=== PATIENT | female | born 1935 | race Caucasian/White ===

== ENCOUNTER 2018-04-01 13:30 | Emergency (ER) | payer OTHER | END 2018-04-01 14:15 | disposition home or self-care (01) | LOC: FTE 13:30 | DX: H60.91 Unspecified otitis externa, right ear (principal); E11.9 Type 2 diabetes mellitus without complications; I10 Essential (primary) hypertension | CPT/HCPCS: 99283 ==

== ENCOUNTER 2019-03-28 14:15 | Observation (INO) | payer OTHER ==
[2019-03-28 15:06] LABS: ADD MAN DIFF? NO
[2019-03-28 15:10] LABS: BASOPHILS % 0.1 % (0.0-2.0); EOSINOPHILS # 0.1 10^3/ul (0.0-0.5); EOSINOPHILS % 0.8 % (0.0-7.0); HEMATOCRIT 43.8 % (37.0-47.0); HEMOGLOBIN 14.1 g/dl (12.0-16.0); LYMPHOCYTES # 1.6 10^3/ul (0.8-2.9); MEAN CORPUSCULAR HGB CONC 32.2 g/dl (32.0-37.0); MEAN CORPUSCULAR VOLUME 86.9 fl (82.0-101.0); MEAN PLATELET VOLUME 10.2 fl (7.4-10.4); MONOCYTE # 0.4 10^3/ul (0.3-0.9); NEUTROPHIL # 5.3 10^3/ul (1.6-7.5); NEUTROPHILS % 71.8 % (39.0-77.0); PLATELET COUNT 175 10^3/UL (140-415); RED BLOOD COUNT 5.04 10^6/ul (4.20-5.40); RED CELL DISTRIBUTION WIDTH 12.6 % (11.5-14.5)
[2019-03-28 15:10] LABS: WHITE BLOOD COUNT 7.4 10^3/ul (4.8-10.8)
[2019-03-28 15:22] LABS: ADD UMIC YES; UR ASCORBIC ACID NEGATIVE (NEGATIVE); UR BILIRUBIN (Dip) NEGATIVE (NEGATIVE); UR BLOOD (Dip) NEGATIVE (NEGATIVE); UR CLARITY SLIGHTLY CLOUDY (CLEAR); UR COLOR YELLOW (YELLOW); UR GLUCOSE (Dip) NEGATIVE (NEGATIVE); UR KETONES (Dip) NEGATIVE (NEGATIVE); UR LEUKOCYTE ESTERASE (Dip) 2+ Leu/ul (NEGATIVE); UR MUCUS FEW /HPF (NONE SEEN); UR NITRITE (Dip) NEGATIVE (NEGATIVE); UR RBC 2 /HPF (0-5); UR SPECIFIC GRAVITY (Dip) 1.012 (1.003-1.030); UR SQUAMOUS EPITHELIAL CELL FEW /HPF (FEW); UR TOTAL PROTEIN (Dip) NEGATIVE (NEGATIVE); UR UROBILINOGEN (Dip) 1+ mg/dL (NEGATIVE); UR WBC 4 /HPF (0-5)
[2019-03-28 15:30] LABS: ALANINE AMINOTRANSFERASE 26 IU/L (13-69); ALBUMIN 4.8 g/dl (3.3-4.9); ALKALINE PHOSPHATASE 70 IU/L (42-121); ANION GAP 11 (5-13); ASPARTATE AMINO TRANSFERASE 21 IU/L (15-46); BILIRUBIN,INDIRECT 0.6 mg/dl (0-1.1); BILIRUBIN,TOTAL 0.6 mg/dl (0.2-1.3); BLOOD UREA NITROGEN 12 mg/dl (7-20); CALCIUM 10.1 mg/dl (8.4-10.2); CARBON DIOXIDE 31 mmol/L (21-31); CHLORIDE 94 mmol/L (97-110); CREATININE 0.56 mg/dl (0.44-1.00); GLUCOSE 162 mg/dl (70-220); LIPASE 128 U/L (23-300); POTASSIUM 4.2 mmol/L (3.5-5.1); SODIUM 136 mmol/L (135-144); TOTAL PROTEIN 8.8 g/dl (6.1-8.1)
[2019-03-28 15:42] LABS: TROPONIN-I < 0.012 ng/ml (0.000-0.120)
[2019-03-28] MEDS ORDERED: ONDANSETRON 4 MG INJ IV ×2 (17:00→17:30)
[2019-03-28] MEDS ORDERED: ACETAMINOPHEN 325 MG TAB PO ×2 (17:00→17:30)
[2019-03-28] MEDS: CEFTRIAXONE 1 GM/50 ML (PMX) 50 ML IVPB (17:13)
[2019-03-28] MEDS ORDERED: AL HYDROX/MG HYDROX/SIMETH 30 ML CUP PO (17:30)
[2019-03-28] MEDS ORDERED: DOCUSATE SODIUM 100 MG CAP PO (17:30)
[2019-03-28] MEDS ORDERED: morphine 2 MG INJ IV (17:30)
[2019-03-28] MEDS ORDERED: HYDROCODONE/APAP (5/325) TAB PO (17:30)
[2019-03-28] MEDS ORDERED: NACL 0.9% 3 ML SYG IV (17:30)
[2019-03-28] MEDS ORDERED: BISACODYL (EC) 5 MG TAB PO (17:30)
[2019-03-28] MEDS ORDERED: GLIMEPIRIDE 2 MG TAB PO (18:00)
[2019-03-28 18:11] LABS: CREATINE KINASE 50 IU/L (23-200)
[2019-03-28 18:11] LABS: LACTIC ACID 1.3 mmol/L (0.5-2.0)
[2019-03-28] MEDS: INSULIN ASPART [NOVOLOG] 3 ML PEN SC ×3 (18:51→21:00)
[2019-03-28] MEDS ORDERED: GLUCAGON 1 MG INJ IM (19:00)
[2019-03-28] MEDS ORDERED: GLUCOSE GEL 15 GRAM TUBE BUCCAL (19:00)
[2019-03-28] MEDS ORDERED: GLUCOSE GEL 15 GRAM TUBE PO ×2 (19:00)
[2019-03-28] MEDS ORDERED: DEXTROSE 50% 50 ML SYRINGE IV ×2 (19:00)
[2019-03-28] MEDS: ACCU-CHEK XX ×2 (21:00)
[2019-03-28] MEDS: FAMOTIDINE 20 MG TAB PO (21:34)
[2019-03-28] MEDS: SOD CHLORIDE 0.9% 1,000 ML IV (21:50)
[2019-03-29] MEDS: BARIUM SULF 2% 450 ML BTL (BERRY SMOOTHIE) PO (01:10)
[2019-03-29] MEDS: ACCU-CHEK XX ×4 (01:11→17:26)
[2019-03-29] MEDS: SOD CHLORIDE 0.9% 1,000 ML IV ×2 (03:46→11:39)
[2019-03-29] MEDS: IOHEXOL 300MG/ML 150 ML BTL (04:05)
[2019-03-29] MEDS: SOD CHLORIDE 0.9% 100 ML (04:05)
[2019-03-29 07:10] LABS: ADD MAN DIFF? NO
[2019-03-29 07:23] LABS: WHITE BLOOD COUNT 7.6 10^3/ul (4.8-10.8)
[2019-03-29 07:23] LABS: BASOPHILS % 0.1 % (0.0-2.0); EOSINOPHILS # 0.1 10^3/ul (0.0-0.5); EOSINOPHILS % 1.4 % (0.0-7.0); HEMATOCRIT 40.4 % (37.0-47.0); HEMOGLOBIN 12.9 g/dl (12.0-16.0); LYMPHOCYTES # 2.1 10^3/ul (0.8-2.9); MEAN CORPUSCULAR HEMOGLOBIN 28.2 pg (29.0-33.0); MEAN CORPUSCULAR HGB CONC 31.9 g/dl (32.0-37.0); MEAN CORPUSCULAR VOLUME 88.2 fl (82.0-101.0); MEAN PLATELET VOLUME 10.7 fl (7.4-10.4); MONOCYTE # 0.6 10^3/ul (0.3-0.9); MONOCYTES % 7.8 % (0.0-11.0); NEUTROPHIL # 4.7 10^3/ul (1.6-7.5); NEUTROPHILS % 62.4 % (39.0-77.0); PLATELET COUNT 224 10^3/UL (140-415); RED BLOOD COUNT 4.58 10^6/ul (4.20-5.40); RED CELL DISTRIBUTION WIDTH 12.7 % (11.5-14.5)
[2019-03-29 07:33] LABS: HEMOGLOBIN A1C 7.5 % (0-5.9)
[2019-03-29 07:43] LABS: INR 1.05; PROTIME 13.8 Sec (11.9-14.9); PT RATIO 1.1
[2019-03-29 07:53] LABS: ALANINE AMINOTRANSFERASE 21 IU/L (13-69); ALBUMIN/GLOBULIN RATIO 1.14; ALKALINE PHOSPHATASE 58 IU/L (42-121); ANION GAP 6 (5-13); ASPARTATE AMINO TRANSFERASE 24 IU/L (15-46); BILIRUBIN,INDIRECT 0.7 mg/dl (0-1.1); BILIRUBIN,TOTAL 0.7 mg/dl (0.2-1.3); BLOOD UREA NITROGEN 10 mg/dl (7-20); CALCIUM 9.4 mg/dl (8.4-10.2); CARBON DIOXIDE 30 mmol/L (21-31); CHLORIDE 99 mmol/L (97-110); CREATININE 0.55 mg/dl (0.44-1.00); GLUCOSE 140 mg/dl (70-220); MAGNESIUM 1.6 mg/dl (1.7-2.5); SODIUM 135 mmol/L (135-144); TOTAL PROTEIN 7.5 g/dl (6.1-8.1)
[2019-03-29] MEDS: INSULIN ASPART [NOVOLOG] 3 ML PEN SC ×3 (07:55→17:26)
[2019-03-29] MEDS: HYDROCHLOROTHIAZIDE 25 MG TAB PO (08:29)
[2019-03-29] MEDS: LOSARTAN 50 MG TAB PO (08:30)
[2019-03-29] MEDS: ENOXAPARIN 40 MG/0.4 ML SYG SC (08:34)
[2019-03-29] MEDS: CIPROFLOXACIN 250 MG TAB PO (18:38)
[2019-03-29 19:48] LABS: OCCULT BLOOD STOOL NEGATIVE (NEGATIVE)
== END 2019-03-29 19:10 | disposition home or self-care (01) ==
LOC: E/R 14:15 → TEL 16:52
DX: R55 Syncope and collapse (principal); I10 Essential (primary) hypertension; E11.9 Type 2 diabetes mellitus without complications; E78.00 Pure hypercholesterolemia, unspecified; M19.90 Unspecified osteoarthritis, unspecified site; E78.5 Hyperlipidemia, unspecified; H40.9 Unspecified glaucoma; R30.0 Dysuria; G31.84 Mild cognitive impairment of uncertain or unknown etiology; R62.7 Adult failure to thrive; Z68.24 Body mass index [BMI] 24.0-24.9, adult; Z79.84 Long term (current) use of oral hypoglycemic drugs
CPT/HCPCS: 36415; 71045; 74178; 80053; 81001; 82270; 82550; 82962; 83036; 83605; 83690; 83735; 84443; 84484; 85025; 85610; 87045; 87086; 87338; 93005; 99285-25; G0378